=== PATIENT | male | born 1945 | race Caucasian/White ===

== ENCOUNTER 2020-11-28 19:10 | Emergency (ER) | payer MEDICARE ==
--- NOTE | 2020-11-28 19:52 | EDM.PDOC ---
ED HPI GENERAL MEDICAL PROBLEM - General Chief Complaint: General Stated Complaint: FISH HOOK FINGER Time Seen by Provider: 11/28/20 19:36 Source of Information: Reports: Patient History Limitations: Reports: No Limitations - History of Present Illness INITIAL COMMENTS - FREE TEXT/NARRATIVE: Patient was fishing on [place] today when he hooked into a northern with a large floor. When trying to retrieve the fish he inadvertently took his finger on one of the exposed trouble hooks causing it to become embedded in his glove and then the distal segment of his left index finger. He tried to clip the lower to remove the hook but was unable to dislodge it. Was able to have a neighbor help him cut the lower relieving pressure from the [place] on his finger. The patient's last tetanus was a year ago. - Related Data Allergies Allergy/AdvReac Type Severity Reaction Status Date / Time No Known Allergies Allergy Verified 11/28/20 19:26 Home Meds: Home Meds *Acid Reflux Med 1 mg PO BEDTIME 11/28/20 [History] FLUoxetine HCl [Prozac] 20 mg PO BEDTIME 11/28/20 [History] Simvastatin [Zocor] 10 mg PO BEDTIME 11/28/20 [History] traZODone 50 mg PO BEDTIME 11/28/20 [History] Past Medical History HEENT History: Reports: Impaired Vision Cardiovascular History: Reports: Arrhythmia, CAD, High Cholesterol Gastrointestinal History: Reports: GERD, Inflammatory Bowel Disease Psychiatric History: Reports: Anxiety, Depression Oncologic (Cancer) History: Reports: Squamous Cell Carcinoma - Infectious Disease History Infectious Disease History: Reports: Chicken Pox, Measles, Mumps - Past Surgical History HEENT Surgical History: Reports: Tonsillectomy Neurological Surgical History: Reports: Thoracic Spine Musculoskeletal Surgical History: Reports: Shoulder Surgery Social & Family History - Tobacco Use Tobacco Use Status *Q: Never Tobacco User ED ROS GENERAL - Review of Systems Review Of Systems: See Below Constitutional: Reports: No Symptoms Musculoskeletal: Reports: Hand Pain ([place] embedded in the right middle finger) Skin: Reports: No Symptoms ([place] embedded in the right middle finger) ED EXAM, GENERAL - Physical Exam Exam: See Below Exam Limited By: No Limitations General Appearance: Alert, No Apparent Distress Extremities: Normal Range of Motion, Other ([place] is embedded in the distal segment of the right middle finger just distal to the DIP.) Neurological: Alert, Oriented, No Motor/Sensory Deficits Skin Exam: Wound/Incision (Puncture wound in the right middle finger just distal to the DIP.) Foreign Body Removal - Pre-Procedure Indication: Distal right middle finger just distal to the DIP. Consent Obtained: Reports: Patient Performing Doctor:: Ran Ramirez - Location/Anesthesia Right Foreign Body Other Location Comment:: Right middle finger Anesthesia Type: Local (1% lidocaine, 1 cc) - Post-Procedure Findings:: The fishhook was removed with downward pressure and traction removing the hook after dislodging the amna. Complications:: No (A sterile dressing was applied over the puncture wound.) Course - Vital Signs Last Recorded V/S: Last Vital Signs Temp 36.4 C 11/28/20 19:30 Pulse 72 11/28/20 19:30 Resp 16 11/28/20 19:30 BP 179/83 H 11/28/20 19:30 Pulse Ox 96 11/28/20 19:30 - Orders/Labs/Meds Meds: Medications Discontinued Medications Generic Name Dose Route Start Last Admin Trade Name Cely PRN Reason Stop Dose Admin Lidocaine HCl 5 ml 11/28/20 19:12 Lidocaine 1% 5 Ml Sdv INJECT 11/28/20 19:13 ONETIME ONE Departure - Departure Time of Disposition: 19:46 Disposition: Home, Self-Care 01 Clinical Impression: Puncture wound [place] injury to finger Qualifiers: Encounter type: initial encounter Laterality: right Qualified Code(s): S69.91XA - Unspecified injury of right wrist, hand and finger(s), initial encounter - Discharge Information Instructions: Puncture Wound Referrals: PCP,None [Primary Care Provider] - Care Plan Goals: I am going to start you on cephalexin 500 mg 3 times a day for 5 days to prophylactically treat you for infection as this was a dirty hook. Please return if any significant sign of infection is seen over the next couple of days. You may experience some localized tenderness and inflammation due to the puncture wound. This is to be expected especially once the lidocaine wears off. You may take Tylenol, ibuprofen or Aleve for the pain. Sepsis Event Note (ED) - Evaluation Sepsis Screening Result: No Definite Risk - Focused Exam Vital Signs: Vital Signs Temp Pulse Resp BP Pulse Ox 11/28/20 19:30 36.4 C 72 16 179/83 H 96 11/28/20 19:26 36.4 C 72 16 179/83 H 96 - Problem List & Annotations (1) [place] injury to finger SNOMED Code(s): 63929688 Code(s): S69.90XA - UNSP INJURY OF UNSP WRIST, HAND AND FINGER(S), INIT ENCNTR Status: Acute Priority: Low Current Visit: Yes Qualifiers: Encounter type: initial encounter Laterality: right Qualified Code(s): S69.91XA - Unspecified injury of right wrist, hand and finger(s), initial encounter (2) Puncture wound SNOMED Code(s): 784951284 Code(s): T14.8XXA - OTHER INJURY OF UNSPECIFIED BODY REGION, INITIAL ENCOUNTER Status: Acute Priority: Low Current Visit: Yes - Problem List Review Problem List Initiated/Reviewed/Updated: Yes
== END 2020-11-28 20:11 | disposition home or self-care (01) ==
LOC: JP.ED 19:10
DX: S61.242A Puncture wound with foreign body of right middle finger without damage to nail, initial encounter (principal); I25.10 Atherosclerotic heart disease of native coronary artery without angina pectoris; E78.00 Pure hypercholesterolemia, unspecified; K21.9 Gastro-esophageal reflux disease without esophagitis; Z79.899 Other long term (current) drug therapy; W26.8XXA Contact with other sharp object(s), not elsewhere classified, initial encounter
CPT/HCPCS: 99283